=== PATIENT | male | born 2000 | race Two or more races ===

== ENCOUNTER 2025-03-31 19:15 | Emergency (ER) | payer SELFPAY ==
[2025-03-31 19:41] VITALS: BP 134/72; PULSE 84; RESP 20; TEMP 36.4; O2SAT 100; BMI 19.2
--- NOTE | 2025-03-31 19:44 | ED_ITS ---
HPI - General Adult General Chief complaint: Nausea/Vomiting/Diarrhea Stated complaint: STOMACH PAIN VOMITING BELIEVES FOOD POISON Time Seen by Provider: 03/31/25 23:50 History of Present Illness ED Provider: Dona VALENCIA narrative: The patient is a 24-year-old male who states that he has a very strong family history of colon cancer and that therefore both he and his brother had prophylactic colectomies when they were young. 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 He subsequently had a closure of the ileostomy in July of 2015. Otherwise the patient is healthy. The patient says that he went to work this morning at around 07:00 feeling fine. He had lunch at [employer] at around 10:30. About an hour to later he started to have abdominal discomfort which later became associated with nausea, vomiting, and diarrhea. He estimates that he had multiple episodes of both vomiting and diarrhea, probably more vomiting than diarrhea. He thinks he vomited at least 8 or 9 times. He also has a lot of abdominal cramping. Ultimately he came to the emergency department. While waiting to be seen he is feeling somewhat better. Related Data Allergies Allergy/AdvReac Type Severity Reaction Status Date / Time No Known Allergies Allergy Verified 03/31/25 19:44 Review of Systems 2 Review of Systems: Yes all other systems are reviewed and are negative [facility] Social History Social History Advance Directives: No Advance Directives Information Provided: Yes Physical Exam ED Vital Signs: Vital Signs - 24 hr 03/31/25 19:41 Temperature 97.5 F Pulse Rate 84 Respiratory Rate 20 Blood Pressure 134/72 Pulse Oximetry 100 Oxygen Delivery Method Room Air BMI result Body Mass Index 19.2 Const Other: The patient is a 24-year-old male who was awake and alert. He does not appear in overt distress. He is slim. He looks as if he is ordinarily in good health. Orientation/consciousness: patient oriented x3 HENMT Other: The face is symmetrical. ?Mucous membranes moist. Eyes Other: Pupils are round equal, conjunctivae are clear, extraocular movements intact Neck Neck: Yes normal visual inspection and Yes full ROM Resp Effort & Inspection: normal respiratory effort Auscultation: clear to auscultation bilaterally Cardio Rate: regular rate Rhythm: regular rhythm Heart sounds: S1 normal heart sound present and S2 normal heart sound present GI Other: The abdomen is flat, soft, and nontender. There are some small laparoscopic scars. Skin Other: The skin is dry and unremarkable Neuro General: patient oriented x3, gait normal, tone normal, moves all extremities, no focal motor deficits and CN's II-XI intact bilaterally Extrem Other: There is no calf swelling or tenderness. No asymmetry. No peripheral edema. Course Course Course Narrative: Rapid medical examination performed in triage by Adelita Montgomery PA-C: Patient is a 24 year old male presenting to the emergency department with nausea, vomiting, and diarrhea after eating [employer]. Detailed physical exam and review of systems are deferred to the lieutenant general. Labs and swabs ordered. Patient placed back in the waiting room pending room availability and results. Medications Administered Discontinued Medications Generic Name Dose Route Start Last Admin Trade Name Freq PRN Reason Stop Dose Admin Ondansetron HCl 4 mg 04/01/25 00:21 04/01/25 00:52 Ondansetron Odt 4 Mg Tab.Rapdis TRANSLINGU 04/01/25 00:22 4 mg ONCE ONE Administration Medical Decision Making Medical Decision Making [facility] Narrative: The patient is a 24-year-old male who has had nausea, vomiting, and diarrhea and some abdominal cramping throughout the day today. This was after he ate lunch and [employer]. At the time that I saw him he has been waiting in the emergency room for a long time and was feeling has a his symptoms were subsiding. He was given a dose of oral ondansetron. He was able to tolerate eliz jennifer. He was feeling much better and was comfortable with the prospect of going home. My suspicion for an acute surgical process is very low. His abdomen seems soft and nontender and he is feeling much better without significant treatment. He should return if worse. Lab Data 03/31/25 20:28 03/31/25 20:28 Labs: Lab Results 03/31/25 Range/Units 20: WBC 13.5 H (4.8-10.8) X10*3/uL RBC 5.97 H (4.60-5.80) X10*6/uL Hgb 16.9 (14.0-18.0) g/dl Hct 49.4 (42.0-52.0) % MCV 82.7 (80.0-98.0) fL MCH 28.3 (27.0-33.0) pg MCHC 34.2 (31.0-36.0) g/dl RDW 12.5 (11.0-16.0) % Plt Count 223 (160-400) X10*3/uL MPV 9.8 (9.4-12.4) fL Immature Gran % (Auto) Cancelled Neut % (Auto) Cancelled Lymph % (Auto) Cancelled [place] % (Auto) Cancelled Eos % (Auto) Cancelled Baso % (Auto) Cancelled Lymph # (Auto) Cancelled [place] # (Auto) Cancelled Eos # (Auto) Cancelled Baso # (Auto) Cancelled Abs Immat Gran (auto) Cancelled Absolute Neuts (auto) Cancelled Absolute Nucleated RBC 0.000 (0.0-0.012) X10*3/uL Nucleated RBC % (auto) 0.0 (0.0-0.2) /100WBC Neutrophils % (Manual) 81 H (45-73) % Band Neutrophils % 8 H (3-5) % Lymphocytes % (Manual) 1 L (20-40) % Monocytes % (Manual) 8 (2-11) % Eosinophils % (Manual) 2 (0-4) % Abs Neuts (Manual) 12.0 H (2.0-8.3) X10*3/uL Lymphocytes # (Manual) 0.1 L (1.2-4.9) X10*3/uL Monocytes # (Manual) 1.1 (0.1-1.2) X10*3/uL Eosinophils # (Manual) 0.3 (0.0-0.4) X10*3/uL Platelet Estimate NORMAL (NORMAL) Plt Morphology Comment NORMAL RBC Morphology NOTED [place] Cells 1+ (0-2) /OIF Acanthocytes (Spur) 2+ (3-5) /OIF Smear Tech's Comments MANUAL DIFF Sodium 141 (135-145) mmol/L Potassium 3.9 (3.3-5.1) mmol/L Chloride 110 H (96-108) mmol/L Carbon Dioxide 18 L (22-29) mmol/L Anion Gap 17 (12-20) BUN 14 (9-16) mg/dL Creatinine 0.80 (0.5-1.4) mg/dL Estim Creat Clear Calc 119.7 Estimated GFR > 60 Random Glucose 120 H (60-115) mg/dL Calcium 10.1 (8.4-10.2) mg/dL Magnesium 1.9 (1.6-2.6) mg/dL Total Bilirubin 0.9 (0.0-1.0) mg/dL AST 40 H (5-37) U/L ALT 56 H (0-40) U/L Alkaline Phosphatase 59 (39-117) U/L Total Protein 8.1 H (6.5-8.0) g/dL Albumin 5.6 H (3.5-5.0) g/dL Influenza Type A (PCR) NEGATIVE (Negative) Influenza Type B (PCR) NEGATIVE (Negative) RSV RNA Qual (PCR) NEGATIVE (Negative) SARS-CoV-2 RNA (RT-PCR) NEGATIVE (Negative) Discharge Plan Discharge Clinical Impression: Nausea & vomiting Patient Disposition: Home, Self-Care Discharge Date/Time: 04/01/25 02:00 Print Language: Turkish
[2025-03-31 20:34] LABS: Hematocrit 49.4 % (42.0-52.0); Hemoglobin 16.9 g/dl (14.0-18.0); Mean Corpuscular HGB Conc 34.2 g/dl (31.0-36.0); Mean Corpuscular Hemoglobin 28.3 pg (27.0-33.0); Mean Corpuscular Volume 82.7 fL (80.0-98.0); NRBC Abs Auto 0.000 X10*3/uL (0.0-0.012); NRBC Pct Auto 0.0 /100WBC (0.0-0.2); Platelet Count 223 X10*3/uL (160-400); Red Blood Count 5.97 X10*6/uL (4.60-5.80); White Blood Count 13.5 X10*3/uL (4.8-10.8)
[2025-03-31 20:51] LABS: Alanine Aminotransferase 56 U/L (0-40); Albumin Level 5.6 g/dL (3.5-5.0); Alkaline Phosphatase 59 U/L (39-117); Anion Gap 17 (12-20); Aspartate Amino Transferase 40 U/L (5-37); Blood Urea Nitrogen 14 mg/dL (9-16); Calcium 10.1 mg/dL (8.4-10.2); Carbon Dioxide 18 mmol/L (22-29); Chloride 110 mmol/L (96-108); Creatinine Clr Calc Pharmacy 119.7; Estimated Glomerular Filt Rate > 60; Magnesium 1.9 mg/dL (1.6-2.6); Potassium 3.9 mmol/L (3.3-5.1); Sodium 141 mmol/L (135-145); Total Protein 8.1 g/dL (6.5-8.0)
[2025-03-31 20:56] LABS: Band Neutrophils Percent 8 % (3-5); Eosinophils Absolute Manual 0.3 X10*3/uL (0.0-0.4); Eosinophils Percent Manual 2 % (0-4); Lymphocytes Absolute Manual 0.1 X10*3/uL (1.2-4.9); Lymphocytes Percent Manual 1 % (20-40); Monocytes Absolute Manual 1.1 X10*3/uL (0.1-1.2); Monocytes Percent Manual 8 % (2-11); Neutrophils Absolute Manual 12.0 X10*3/uL (2.0-8.3); Neutrophils Percent Manual 81 % (45-73)
[2025-03-31 20:57] LABS: RBC Morphology NOTED
[2025-03-31 20:59] LABS: Acanthocytes 2+ (3-5) /OIF; Burr Cells 1+ (0-2) /OIF
[2025-03-31 21:24] LABS: Resp Syncy Virus RNA Qual PCR NEGATIVE (Negative); SARS COV2 PCR INHOUSE NEGATIVE (Negative)
== END 2025-04-01 02:00 | disposition home or self-care (01) ==
PROVIDERS: Physician Assistant Medical; Emergency Provider Emergency Medicine
DX: R11.2 Nausea with vomiting, unspecified (principal); Z03.818 Encounter for observation for suspected exposure to other biological agents ruled out
CPT/HCPCS: 80053; 83735; 85007; 85027; 87637; 99281; 99283